=== PATIENT | female | born 1950 | race Caucasian/White ===

== ENCOUNTER 2018-02-16 09:23 | Observation (INO) ==
[2018-02-16] MEDS ORDERED: SODIUM CHLORIDE 0.9% 1,000 ML IV STA (09:43)
[2018-02-16 10:18] LABS: Basophils % 0.6 % (0.0-0.8); Eosinophils # 0.2 10*3/uL (0.0-0.87); Eosinophils % 3.3 % (0.00-10.9); Hematocrit 48.5 VOL% (35.7-47.0); Hemoglobin 16.7 GM/DL (12.0-16.0); Immature Granulocytes % 0.4 %; Immature Granulocytes Absolute 0.02 #; Lymphocytes # 1.5 10*3/uL (1.4-4.0); Lymphocytes % 27.5 % (21.3-54.2); Mean Corpuscular HGB Conc 34.4 GM/DL (32-36); Mean Corpuscular Hemoglobin 32 PG (27-34); Mean Corpuscular Volume 92.4 FL (87-102); Monocytes # 0.3 10*3/uL (0.11-0.8); Monocytes % 6.1 % (1.7-12.7); Neutrophils # 3.3 10*3/uL (1.4-7.4); Neutrophils % 62.1 % (38.7-73.9); Platelet Count 252 T/CUMM (130-400); Red Blood Count 5.25 MC/CUMM (3.8-5.5); Red Cell Distribution Width 11.9 % (9.3-17.3); White Blood Count 5.4 T/CUMM (4-12)
[2018-02-16 10:20] LABS: Apearance,Urine Slightly Hazy (Clear); Bilirubin,Urine Negative (Negative); Blood, Urine Small mg/dL (Negative); Glucose,Urine (UA) >=500 mg/dL (Negative); Ketones,Urine 5 mg/dL (Negative); Mucus,Urine Occasional /LPF (Occasional); Nitrite,Urine Positive (Negative); Protein,Urine Negative; RBC,Urine 1 /HPF (0-4); Urine Color Yellow (Yellow); Urine Specific Gravity 1.026 (1.001-1.035); Urine Urobilinogen < 2.0 EU/DL (0.2-1.0); WBC,Urine 9 /HPF (0-6)
[2018-02-16 10:25] LABS: PT Patient Result 10.7 SECS
[2018-02-16 10:26] LABS: Barbiturates Screen,Urine Negative (Negative); Benzodiazepines Screen,Urine Negative (Negative); Cannabinoid Screen,Urine Negative (Negative); Opiate Screen,Urine Negative (Negative); Phencyclidine Screen,Urine Negative (Negative)
[2018-02-16 10:33] LABS: Alanine Aminotransferase 87 U/L (13-56); Albumin 3.9 G/DL (3.4-5.0); Alkaline Phosphatase 69 U/L (45-117); Aspartate Amino Transferase 44 U/L (0-37); Blood Urea Nitrogen 16 MG/DL (7-18); Calcium 9.5 MG/DL (8.5-10.1); Glucose 294 MG/DL (74-106); Osmolality,Calculated 284.8 MOS/KG (273-304); Sodium 137 MMOL/L (136-145); Total Protein 7.3 G/DL (6.4-8.3)
[2018-02-16] MEDS ORDERED: cefTRIAXone 1,000 MG in SODIUM CHLORIDE 0.9% 100 ML IV STA (10:38)
[2018-02-16] MEDS ORDERED: ACETAMINOPHEN 325 MG TABLET PO PRN (13:09)
[2018-02-16] MEDS ORDERED: DOCUSATE SODIUM 100 MG CAPSULE PO PRN (13:09)
[2018-02-16] MEDS ORDERED: ONDANSETRON 4 MG/2 ML VIAL IV PRN (13:09)
[2018-02-16] MEDS ORDERED: DEXTROSE 50% 25 GM/50 ML VIAL IV PRN (13:09)
[2018-02-16] MEDS ORDERED: GLUCAGON 1 MG VIAL IM PRN (13:09)
[2018-02-16] MEDS ORDERED: LABETALOL 20 MG/4 ML SYRINGE IV PRN (13:13)
[2018-02-16 13:34] LABS: Risk Ratio 5.3; VLDL CHOLESTEROL 48.8 MG/DL
[2018-02-16] MEDS: ENOXAPARIN 40 MG/0.4 ML SYRINGE SUBCUT SCH (13:59)
[2018-02-16] MEDS: ASPIRIN 325 MG TABLET PO SCH (13:59)
[2018-02-16] MEDS ORDERED: LORazepam 2 MG/1 ML VIAL IV STA (14:17)
[2018-02-16] MEDS: INSULIN LISPRO 100 UNIT/ML SUBCUT SCH ×2 (19:43→21:57)
[2018-02-16] MEDS ORDERED: ROSUVASTATIN 20 MG TABLET PO SCH (21:00)
[2018-02-17 03:48] LABS: Basophils % 0.5 % (0.0-0.8); Eosinophils # 0.4 10*3/uL (0.0-0.87); Eosinophils % 5.2 % (0.00-10.9); Hematocrit 42.2 VOL% (35.7-47.0); Hemoglobin 14.2 GM/DL (12.0-16.0); Immature Granulocytes % 0.3 %; Immature Granulocytes Absolute 0.02 #; Lymphocytes # 2.8 10*3/uL (1.4-4.0); Lymphocytes % 37.7 % (21.3-54.2); Mean Corpuscular HGB Conc 33.6 GM/DL (32-36); Mean Corpuscular Hemoglobin 31 PG (27-34); Mean Corpuscular Volume 92.7 FL (87-102); Monocytes # 0.6 10*3/uL (0.11-0.8); Monocytes % 8.6 % (1.7-12.7); Neutrophils # 3.6 10*3/uL (1.4-7.4); Neutrophils % 47.7 % (38.7-73.9); Platelet Count 218 T/CUMM (130-400); Red Blood Count 4.55 MC/CUMM (3.8-5.5); Red Cell Distribution Width 11.7 % (9.3-17.3); White Blood Count 7.5 T/CUMM (4-12)
[2018-02-17 04:16] LABS: Albumin 3.3 G/DL (3.4-5.0); Bilirubin,Total 0.4 MG/DL (0.2-1.0); Calcium 8.3 MG/DL (8.5-10.1); Osmolality,Calculated 283.5 MOS/KG (273-304); Total Protein 6.2 G/DL (6.4-8.3)
[2018-02-17] MEDS ORDERED: cefTRIAXone 1,000 MG in SYRINGE 1 EACH IV SCH (09:00)
[2018-02-17] MEDS ORDERED: OMEGA 3 ACID ETHYL ESTERS 1 GM CAPSULE PO SCH (09:00)
[2018-02-17] MEDS ORDERED: LISINOPRIL 10 MG TABLET PO SCH (09:00)
[2018-02-17] MEDS: INSULIN LISPRO 100 UNIT/ML SUBCUT SCH ×2 (09:19→13:34)
[2018-02-17] MEDS: ASPIRIN 325 MG TABLET PO SCH (09:20)
[2018-02-17 12:26] VITALS: BP 170/79
[2018-02-17] MEDS: ENOXAPARIN 40 MG/0.4 ML SYRINGE SUBCUT SCH (13:35)
== END 2018-02-17 14:50 | disposition home or self-care (01) ==
LOC: N.EDINP 09:23 → N.ED 09:23 → N.EDINP 15:14 → N.4E 17:01
PROVIDERS: ADMIT Internal Medicine; ATTEND Internal Medicine

== ENCOUNTER 2020-06-04 19:11 | Observation (INO) ==
[2020-06-04] MEDS ORDERED: DIPH/TET/ACEL PERT BOOSTER VACCINE 0.5 ML VIAL IM ONE (19:31)
[2020-06-04] MEDS ORDERED: HYDROmorphone 2 MG/1 ML VIAL IV STA (19:31)
[2020-06-04] MEDS ORDERED: ONDANSETRON 4 MG/2 ML VIAL IV STA (19:31)
[2020-06-04] MEDS ORDERED: MORPHINE 4 MG/1 ML VIAL IV STA (19:31)
[2020-06-04] MEDS ORDERED: LACTATED RINGERS 500 ML IV STA (19:31)
[2020-06-04 20:25] LABS: Basophils % 0.2 % (0.0-0.8); Eosinophils # 0.1 10*3/uL (0.0-0.87); Eosinophils % 0.4 % (0.00-10.9); Hemoglobin 13.7 GM/DL (12.0-16.0); Immature Granulocytes Absolute 0.18 #; Mean Corpuscular HGB Conc 34.3 GM/DL (32-36); Mean Platelet Volume 9.9 FL (9.6-12.0); Monocytes % 4.6 % (1.7-12.7); Neutrophils % 82.8 % (38.7-73.9); Platelet Count 220 T/CUMM (130-400); Red Blood Count 4.35 MC/CUMM (3.8-5.5); Red Cell Distribution Width 11.6 % (9.3-17.3); White Blood Count 18.1 T/CUMM (4-12)
[2020-06-04 20:35] LABS: Bilirubin,Urine Negative (Negative); Blood, Urine Small mg/dL (Negative); Glucose,Urine (UA) >=500 mg/dL (Negative); Ketones,Urine 20 mg/dL (Negative); Mucus,Urine Occasional /LPF (Occasional); Nitrite,Urine Negative (Negative); Protein,Urine 30 MG/DL; RBC,Urine 2 /HPF (0-4); Urine Appearance CLEAR (Clear); Urine Color Yellow (Yellow); Urine Specific Gravity 1.032 (1.001-1.035); Urine Urobilinogen < 2.0 EU/DL (0.2-1.0); WBC,Urine 4 /HPF (0-6)
[2020-06-04 20:50] LABS: Barbiturates Screen,Urine Negative (Negative); Benzodiazepines Screen,Urine Negative (Negative); Cannabinoid Screen,Urine Negative (Negative); Opiate Screen,Urine Negative (Negative); Phencyclidine Screen,Urine Negative (Negative)
[2020-06-04 20:58] LABS: Alanine Aminotransferase 225 U/L (13-56); Albumin 3.4 G/DL (3.4-5.0); Alkaline Phosphatase 84 U/L (45-117); Amylase 34 U/L (25-115); Aspartate Amino Transferase 256 U/L (0-37); Bilirubin,Total < 0.39 MG/DL (0.2-1.0); Blood Urea Nitrogen 19 MG/DL (7-18); Calcium 8.5 MG/DL (8.5-10.1); Estimated Glom Filtration Rate 77 ML/MIN; Glucose 317 MG/DL (74-106); Osmolality,Calculated 288.7 MOS/KG (273-304); Total Protein 6.3 G/DL (6.4-8.3); Troponin I < 0.015 NG/ML (0.00-0.045)
[2020-06-05] MEDS ORDERED: DEXTROSE 50% 25 GM/50 ML VIAL IV PRN (00:06)
[2020-06-05] MEDS ORDERED: ACETAMINOPHEN 325 MG TABLET PO PRN (00:06)
[2020-06-05] MEDS ORDERED: GLUCAGON 1 MG VIAL IM PRN (00:06)
[2020-06-05] MEDS ORDERED: SODIUM CHLORIDE 0.9% 1,000 ML IV SCH (01:00)
[2020-06-05] MEDS: ceFAZolin 1,000 MG in SYRINGE 1 EACH IV SCH ×3 (04:17→22:33)
[2020-06-05 04:30] LABS: Basophils % 0.2 % (0.0-0.8); Eosinophils % 0.2 % (0.00-10.9); Hematocrit 34.9 VOL% (35.7-47.0); Hemoglobin 12.4 GM/DL (12.0-16.0); Immature Granulocytes % 0.4 %; Immature Granulocytes Absolute 0.05 #; Lymphocytes # 1.5 10*3/uL (1.4-4.0); Lymphocytes % 13.1 % (21.3-54.2); Mean Corpuscular HGB Conc 35.5 GM/DL (32-36); Mean Corpuscular Volume 91.4 FL (87-102); Mean Platelet Volume 9.9 FL (9.6-12.0); Monocytes % 6.5 % (1.7-12.7); Neutrophils % 79.6 % (38.7-73.9); Platelet Count 210 T/CUMM (130-400); Red Blood Count 3.82 MC/CUMM (3.8-5.5); Red Cell Distribution Width 11.7 % (9.3-17.3); White Blood Count 11.6 T/CUMM (4-12)
[2020-06-05 04:38] LABS: PT Patient Result 10.9 SECS (9.8-11.9)
[2020-06-05 04:45] LABS: Albumin 3.3 G/DL (3.4-5.0); Bilirubin,Total 0.4 MG/DL (0.2-1.0); Calcium 8.4 MG/DL (8.5-10.1); Total Protein 5.9 G/DL (6.4-8.3)
[2020-06-05] MEDS ORDERED: GENTAMICIN INJ 310 MG in SODIUM CHLORIDE 0.9% 100 ML IV ONE (06:29)
[2020-06-05] MEDS ORDERED: ceFAZolin 1,000 MG in SYRINGE 1 EACH IV ONE (06:30)
[2020-06-05] MEDS ORDERED: BACITRACIN OINT 0.9 GM PACK TOP ONE (06:37)
[2020-06-05] MEDS ORDERED: MIDAZOLAM 2 MG/2 ML VIAL ONE (07:06)
[2020-06-05] MEDS ORDERED: fentaNYL 100 MCG/2 ML VIAL ONE (07:06)
[2020-06-05] MEDS ORDERED: GENTAMICIN 80 MG/2 ML VIAL ONE ×2 (07:11→07:12)
[2020-06-05] MEDS ORDERED: SUCCINYLCHOLINE 200 MG/10 ML VIAL ONE (07:26)
[2020-06-05] MEDS ORDERED: ONDANSETRON 4 MG/2 ML VIAL ONE (07:26)
[2020-06-05] MEDS ORDERED: DEXAMETHASONE 4 MG/1 ML VIAL ONE (07:26)
[2020-06-05] MEDS ORDERED: PHENYLEPHRINE 1 MG/10 ML SYRINGE IV ONE (07:26)
[2020-06-05] MEDS ORDERED: LIDOCAINE 2% 5 ML VIAL ONE (07:27)
[2020-06-05] MEDS ORDERED: propofoL 200 MG/20 ML VIAL IV ONE (07:27)
[2020-06-05] MEDS ORDERED: ceFAZolin 1,000 MG VIAL ONE (07:40)
[2020-06-05] MEDS ORDERED: SODIUM CHLORIDE 0.9% 1,000 ML IV ONE (07:40)
[2020-06-05] MEDS ORDERED: BUPIVACAINE MPF 0.25% 30 ML VIAL ONE (08:02)
[2020-06-05] MEDS ORDERED: EPINEPHrine 1 MG/ML VIAL ONE (08:16)
[2020-06-05] MEDS ORDERED: KETOROLAC 30 MG/1 ML VIAL ONE (08:42)
[2020-06-05] MEDS ORDERED: diphenhydrAMINE CAP 25 MG CAPSULE PO PRN (09:16)
[2020-06-05] MEDS ORDERED: MORPHINE 4 MG/1 ML VIAL IV PRN (09:16)
[2020-06-05] MEDS ORDERED: KETOROLAC 30 MG/1 ML VIAL IV PRN (09:16)
[2020-06-05] MEDS: INSULIN REGULAR 100 UNIT/ML SUBCUT SCH ×3 (14:07→18:00)
[2020-06-05] MEDS ORDERED: cloNIDine 0.1 MG TABLET PO PRN (14:46)
[2020-06-05] MEDS: LACTATED RINGERS 1,000 ML IV SCH (14:52)
[2020-06-05] MEDS ORDERED: FLUCONAZOLE 150 MG TABLET PO ONE (15:01)
[2020-06-05] MEDS ORDERED: guaiFENesin/DM ER 600-30 MG TABLET PO PRN (20:05)
[2020-06-05] MEDS: MAGNESIUM HYDROXIDE SUSP 30 ML UDCUP PO PRN (23:12)
[2020-06-06] MEDS: INSULIN REGULAR 100 UNIT/ML SUBCUT SCH ×4 (00:35→18:32)
[2020-06-06] MEDS: LACTATED RINGERS 1,000 ML IV SCH (01:45)
[2020-06-06] MEDS: FONDAPARINUX 2.5 MG/0.5 ML SYRINGE SUBCUT SCH (03:23)
[2020-06-06 06:06] LABS: Basophils % 0.2 % (0.0-0.8); Eosinophils # 0.1 10*3/uL (0.0-0.87); Eosinophils % 1.2 % (0.00-10.9); Hematocrit 28.7 VOL% (35.7-47.0); Hemoglobin 9.8 GM/DL (12.0-16.0); Immature Granulocytes % 0.4 %; Immature Granulocytes Absolute 0.04 #; Lymphocytes # 2.5 10*3/uL (1.4-4.0); Lymphocytes % 27.1 % (21.3-54.2); Mean Corpuscular HGB Conc 34.1 GM/DL (32-36); Mean Corpuscular Volume 93.2 FL (87-102); Mean Platelet Volume 9.8 FL (9.6-12.0); Monocytes % 7.6 % (1.7-12.7); Neutrophils % 63.5 % (38.7-73.9); Platelet Count 147 T/CUMM (130-400); Red Blood Count 3.08 MC/CUMM (3.8-5.5); Red Cell Distribution Width 11.7 % (9.3-17.3); White Blood Count 9.1 T/CUMM (4-12)
[2020-06-06 06:38] LABS: Osmolality,Calculated 281.4 MOS/KG (273-304)
[2020-06-06] MEDS: ceFAZolin 1,000 MG in SYRINGE 1 EACH IV SCH ×3 (07:33→23:45)
[2020-06-06] MEDS: PANTOPRAZOLE 40 MG TABLET PO SCH ×2 (07:52→09:42)
[2020-06-06] MEDS: MAGNESIUM HYDROXIDE SUSP 30 ML UDCUP PO PRN ×2 (09:42→19:12)
[2020-06-06] MEDS: GENTAMICIN INJ 300 MG in SODIUM CHLORIDE 0.9% 100 ML IV SCH (11:43)
[2020-06-06] MEDS ORDERED: FLUCONAZOLE 150 MG TABLET PO ONE (16:00)
[2020-06-07] MEDS: LACTATED RINGERS 1,000 ML IV SCH (00:14)
[2020-06-07] MEDS: INSULIN REGULAR 100 UNIT/ML SUBCUT SCH ×4 (00:18→18:25)
[2020-06-07] MEDS: FONDAPARINUX 2.5 MG/0.5 ML SYRINGE SUBCUT SCH (03:06)
[2020-06-07] MEDS: MAGNESIUM HYDROXIDE SUSP 30 ML UDCUP PO PRN (03:08)
[2020-06-07 05:42] LABS: Basophils % 0.4 % (0.0-0.8); Eosinophils # 0.3 10*3/uL (0.0-0.87); Eosinophils % 2.7 % (0.00-10.9); Hematocrit 28.1 VOL% (35.7-47.0); Hemoglobin 9.5 GM/DL (12.0-16.0); Immature Granulocytes % 0.7 %; Immature Granulocytes Absolute 0.07 #; Lymphocytes # 2.4 10*3/uL (1.4-4.0); Lymphocytes % 22.3 % (21.3-54.2); Mean Corpuscular HGB Conc 33.8 GM/DL (32-36); Mean Corpuscular Volume 93.7 FL (87-102); Monocytes % 6.8 % (1.7-12.7); Neutrophils % 67.1 % (38.7-73.9); Platelet Count 165 T/CUMM (130-400); Red Cell Distribution Width 11.8 % (9.3-17.3); White Blood Count 10.6 T/CUMM (4-12)
[2020-06-07 05:56] LABS: Albumin 2.5 G/DL (3.4-5.0); Bilirubin,Total 1.6 MG/DL (0.2-1.0); Calcium 8.7 MG/DL (8.5-10.1); Osmolality,Calculated 285.4 MOS/KG (273-304); Total Protein 5.4 G/DL (6.4-8.3)
[2020-06-07 06:52] LABS: Calcium 8.6 MG/DL (8.5-10.1); Osmolality,Calculated 285.4 MOS/KG (273-304)
[2020-06-07] MEDS: PANTOPRAZOLE 40 MG TABLET PO SCH (09:10)
[2020-06-07] MEDS: ceFAZolin 1,000 MG in SYRINGE 1 EACH IV SCH ×2 (09:12→16:22)
[2020-06-07] MEDS: GENTAMICIN INJ 300 MG in SODIUM CHLORIDE 0.9% 100 ML IV SCH (12:04)
[2020-06-07] MEDS ORDERED: INSULIN GLARGINE 100 UNIT/ML SUBCUT SCH (21:00)
[2020-06-08] MEDS: INSULIN REGULAR 100 UNIT/ML SUBCUT SCH ×4 (01:03→19:22)
[2020-06-08] MEDS: MAGNESIUM HYDROXIDE SUSP 30 ML UDCUP PO PRN ×3 (01:05→19:20)
[2020-06-08] MEDS: ceFAZolin 1,000 MG in SYRINGE 1 EACH IV SCH ×3 (02:31→20:58)
[2020-06-08] MEDS: FONDAPARINUX 2.5 MG/0.5 ML SYRINGE SUBCUT SCH (02:31)
[2020-06-08 06:13] LABS: Basophils % 0.4 % (0.0-0.8); Eosinophils # 0.3 10*3/uL (0.0-0.87); Eosinophils % 3.2 % (0.00-10.9); Hematocrit 29.5 VOL% (35.7-47.0); Hemoglobin 10.1 GM/DL (12.0-16.0); Immature Granulocytes % 0.6 %; Immature Granulocytes Absolute 0.05 #; Lymphocytes # 2.2 10*3/uL (1.4-4.0); Lymphocytes % 24.8 % (21.3-54.2); Mean Corpuscular HGB Conc 34.2 GM/DL (32-36); Mean Corpuscular Volume 92.8 FL (87-102); Mean Platelet Volume 9.6 FL (9.6-12.0); Monocytes % 6.1 % (1.7-12.7); Neutrophils % 64.9 % (38.7-73.9); Platelet Count 197 T/CUMM (130-400); Red Blood Count 3.18 MC/CUMM (3.8-5.5); Red Cell Distribution Width 11.6 % (9.3-17.3)
[2020-06-08 06:36] LABS: Calcium 9.1 MG/DL (8.5-10.1); Osmolality,Calculated 285.5 MOS/KG (273-304)
[2020-06-08] MEDS: PANTOPRAZOLE 40 MG TABLET PO SCH (08:36)
[2020-06-08] MEDS: GENTAMICIN INJ 300 MG in SODIUM CHLORIDE 0.9% 100 ML IV SCH ×2 (12:15→17:44)
[2020-06-08] MEDS: ONDANSETRON 4 MG/2 ML VIAL IV PRN (19:18)
[2020-06-08] MEDS: MORPHINE 4 MG/1 ML VIAL IV PRN (19:19)
[2020-06-08] MEDS: LACTATED RINGERS 1,000 ML IV SCH (21:32)
[2020-06-08] MEDS: INSULIN GLARGINE 100 UNIT/ML SUBCUT SCH (21:45)
[2020-06-09] MEDS: INSULIN REGULAR 100 UNIT/ML SUBCUT SCH ×5 (00:50→23:37)
[2020-06-09] MEDS: FONDAPARINUX 2.5 MG/0.5 ML SYRINGE SUBCUT SCH (03:55)
[2020-06-09] MEDS: ceFAZolin 1,000 MG in SYRINGE 1 EACH IV SCH ×3 (04:02→19:05)
[2020-06-09] MEDS: ONDANSETRON 4 MG/2 ML VIAL IV PRN ×2 (04:36→21:44)
[2020-06-09] MEDS: MORPHINE 4 MG/1 ML VIAL IV PRN ×2 (04:37→21:43)
[2020-06-09 05:12] LABS: Basophils % 0.4 % (0.0-0.8); Eosinophils # 0.4 10*3/uL (0.0-0.87); Eosinophils % 4.4 % (0.00-10.9); Hemoglobin 10.6 GM/DL (12.0-16.0); Immature Granulocytes % 0.6 %; Immature Granulocytes Absolute 0.05 #; Lymphocytes # 2.1 10*3/uL (1.4-4.0); Lymphocytes % 25.4 % (21.3-54.2); Mean Corpuscular HGB Conc 33.1 GM/DL (32-36); Mean Platelet Volume 9.7 FL (9.6-12.0); Monocytes % 7.2 % (1.7-12.7); NRBC # 0.02 10*3/uL; Platelet Count 224 T/CUMM (130-400); Red Blood Count 3.37 MC/CUMM (3.8-5.5); Red Cell Distribution Width 11.9 % (9.3-17.3); White Blood Count 8.2 T/CUMM (4-12)
[2020-06-09 05:27] LABS: Calcium 8.8 MG/DL (8.5-10.1); Osmolality,Calculated 284.7 MOS/KG (273-304)
[2020-06-09] MEDS: PANTOPRAZOLE 40 MG TABLET PO SCH (08:56)
[2020-06-09] MEDS: MAGNESIUM HYDROXIDE SUSP 30 ML UDCUP PO PRN (09:53)
[2020-06-09] MEDS: GENTAMICIN INJ 300 MG in SODIUM CHLORIDE 0.9% 100 ML IV SCH (17:22)
[2020-06-09] MEDS: INSULIN GLARGINE 100 UNIT/ML SUBCUT SCH (21:42)
[2020-06-10] MEDS: MAGNESIUM HYDROXIDE SUSP 30 ML UDCUP PO PRN (01:40)
[2020-06-10] MEDS: MORPHINE 4 MG/1 ML VIAL IV PRN (01:41)
[2020-06-10] MEDS: FONDAPARINUX 2.5 MG/0.5 ML SYRINGE SUBCUT SCH (03:52)
[2020-06-10] MEDS: ceFAZolin 1,000 MG in SYRINGE 1 EACH IV SCH (03:54)
[2020-06-10 06:06] LABS: Basophils % 0.4 % (0.0-0.8); Eosinophils # 0.4 10*3/uL (0.0-0.87); Eosinophils % 4.1 % (0.00-10.9); Hematocrit 31.8 VOL% (35.7-47.0); Hemoglobin 10.6 GM/DL (12.0-16.0); Immature Granulocytes % 0.8 %; Immature Granulocytes Absolute 0.08 #; Lymphocytes # 2.1 10*3/uL (1.4-4.0); Lymphocytes % 21.9 % (21.3-54.2); Mean Corpuscular HGB Conc 33.3 GM/DL (32-36); Mean Corpuscular Volume 95.8 FL (87-102); Mean Platelet Volume 10.1 FL (9.6-12.0); NRBC # 0.02 10*3/uL; Neutrophils % 64.8 % (38.7-73.9); Platelet Count 276 T/CUMM (130-400); Red Blood Count 3.32 MC/CUMM (3.8-5.5); Red Cell Distribution Width 11.9 % (9.3-17.3); White Blood Count 9.5 T/CUMM (4-12)
[2020-06-10 06:17] LABS: Calcium 9.1 MG/DL (8.5-10.1); Osmolality,Calculated 279.8 MOS/KG (273-304)
[2020-06-10] MEDS: INSULIN REGULAR 100 UNIT/ML SUBCUT SCH ×3 (07:05→12:50)
[2020-06-10] MEDS: PANTOPRAZOLE 40 MG TABLET PO SCH (09:33)
[2020-06-10 11:23] VITALS: BP 157/76
[2020-06-10] MEDS ORDERED: INSULIN GLARGINE 100 UNIT/ML SUBCUT SCH (21:00)
== END 2020-06-10 13:42 ==
LOC: EDBD → EDUNIT# → N.EDINP 19:11 → N.ED 19:11 → INTOOBSV 22:35 → OBSVTOIN 22:35 → N.3E 06-05 01:30
PROVIDERS: ADMIT Student in an Organized Health Care Education/Training Program; ATTEND Student in an Organized Health Care Education/Training Program